=== PATIENT | female | born 1940 | race African-American/Black ===

== ENCOUNTER 2017-03-04 03:49 | Inpatient (IN) | payer OTHER, MEDICAID ==
[~2017-03-04] VITALS: Ht 161.3 cm; Wt 76.2 kg
[~2017-03-04 03:49] MED LIST: ALBU90AE PA; AMLO10TA80 PO; ATROV INH; DIAZ10TA4 PO; GABA-290 PO; LISI40TA4 PO; OMEP20TA2 PO; TRAZ-129 PO
[2017-03-04] MEDS ORDERED: IPRATROPIUM BROMIDE (0.02%) 0.5MG/2.5ML NEB HHN NR (04:54)
[2017-03-04] MEDS ORDERED: ALBUTEROL (0.083%) 2.5MG/3ML NEB HHN NR (04:54)
[2017-03-04] MEDS ORDERED: METHYLPREDNISOLONE SOD SUCC 125 MG/2 ML VIAL IV NR (04:54)
[2017-03-04 05:32] LABS: BASOPHILS % 0.9 % (0.0-2.0); EOSINOPHILS % 0.6 % (0.0-5.0); HEMATOCRIT. 34.6 % (36.0-48.0); HEMOGLOBIN. 11.5 g/dL (12.0-16.0); LYMPHOCYTES % 7.6 % (20.0-50.0); MEAN CORPUSCULAR HEMOGLOBIN 29.7 pg (28.0-32.0); MEAN CORPUSCULAR VOLUME 89.2 fL (81.0-99.0); MEAN PLATELET VOLUME 9.2 fl (7.4-10.4); MONOCYTES % 7.6 % (2.0-8.0); NEUTROPHILS % 83.3 % (40.0-76.0); PLATELET 191 x1000/uL (130-400); RED BLOOD CELL COUNT 3.87 mill/uL (4.2-5.4); RED CELL DISTRIBUTION WIDTH 14.1 % (11.6-14.6)
[2017-03-04] MEDS ORDERED: HYDROCODONE/ACETAMINOPHEN 10/325MG TABLET PO ONE (05:45)
[2017-03-04] MEDS ORDERED: LEVOFLOXACIN 750MG PREMIX 150 ML IV ONE (05:45)
[2017-03-04 05:48] LABS: CARBON DIOXIDE 28 mEq/L (21-32); CHLORIDE 98 mEq/L (98-107); TROPONIN I < 0.02 ng/mL (0.00-0.04)
[2017-03-04 08:00] VITALS: BP 126/44
[2017-03-04 08:30] VITALS: BP 126/44
[2017-03-04 09:15] VITALS: BP 126/44
[2017-03-04] MEDS ORDERED: MAGNESIUM/ALUMINUM HYDROXIDE/SIMETHICONE 30ML UDC PO PRN (09:45)
[2017-03-04] MEDS ORDERED: ONDANSETRON HCL 4MG/2ML VIAL IV PRN (09:45)
[2017-03-04] MEDS ORDERED: ACETAMINOPHEN 325MG TABLET PO PRN (09:45)
[2017-03-04] MEDS ORDERED: IPRATROPIUM/ALBUTEROL 0.5-3(2.5)MG/3ML NEB INH PRN (09:45)
[2017-03-04] MEDS ORDERED: LEVOFLOXACIN 750MG PREMIX 150 ML IV SCH (09:45)
[2017-03-04] MEDS ORDERED: DOCUSATE SODIUM 100MG CAPSULE PO PRN (09:45)
[2017-03-04] MEDS ORDERED: LORAZEPAM 2MG/ML CPJ IV PRN (09:45)
[2017-03-04] MEDS ORDERED: CLONIDINE 0.1MG TABLET PO PRN (09:45)
[2017-03-04] MEDS ORDERED: DIPHENHYDRAMINE 50MG/ML VIAL IV PRN (09:45)
[2017-03-04] MEDS ORDERED: GUAIFENESIN 200MG/10ML SUGAR FREE UDC PO PRN (09:45)
[2017-03-04] MEDS ORDERED: NITROGLYCERIN 0.4MG TABLET SL SL PRN (09:45)
[2017-03-04] MEDS ORDERED: NA PHOS,M-B/NA PHOS,DI-BA ENEMA 118ML PR PRN (09:45)
[2017-03-04] MEDS: ASCORBIC ACID 500 MG TABLET PO SCH ×2 (10:21→21:54)
[2017-03-04] MEDS: ENOXAPARIN 40MG/0.4ML SYR SUBCUT SCH (10:21)
[2017-03-04] MEDS: ZINC SULFATE 220 MG ( 50 ) CAPSULE PO SCH (10:21)
[2017-03-04] MEDS: GUAIFENESIN 600MG ER TABLET PO SCH ×2 (10:21→21:55)
[2017-03-04 11:21] VITALS: BP 120/48
[2017-03-04] MEDS: METHYLPREDNISOLONE SOD SUCC 125 MG/2 ML VIAL IV SCH ×2 (13:28→21:55)
[2017-03-04 15:15] VITALS: BP 107/53
[2017-03-04 17:12] LABS: *AMPHETAMINES SCREEN URINE NEGATIVE (NEGATIVE); *BARBITURATES SCREEN URINE NEGATIVE (NEGATIVE); *BENZODIAZEPINES SCREEN URINE PRESUMTIVE POSITIVE (NEGATIVE); *COCAINE SCREEN URINE NEGATIVE (NEGATIVE); CANNABINOID URINE SCREEN NEGATIVE (NEGATIVE); METHADONE URINE SCREEN NEGATIVE (NEGATIVE); OPIATES URINE SCREEN PRESUMTIVE POSITIVE (NEGATIVE); PHENCYCLIDINE URINE SCREEN NEGATIVE (NEGATIVE)
[2017-03-04 17:20] LABS: CREATINE KINASE 59 IU/L (26-192); CREATINE KINASE MB FRACTION 1.4 ng/mL (0.5-3.6); TROPONIN I < 0.02 ng/mL (0.00-0.04)
[2017-03-04 20:00] VITALS: BP 115/60
[2017-03-04] MEDS: MORPHINE SULFATE 4 MG/ML CPJ (NOT FOR IM USE) IV PRN (23:00)
[2017-03-04] MEDS: IPRATROPIUM/ALBUTEROL 0.5-3(2.5)MG/3ML NEB HHN SCH (23:58)
[2017-03-05] VITALS: BP 111/55
[2017-03-05 00:21] LABS: CREATINE KINASE 63 IU/L (26-192); CREATINE KINASE MB FRACTION 1.4 ng/mL (0.5-3.6); TROPONIN I < 0.02 ng/mL (0.00-0.04)
[2017-03-05] MEDS: ZOLPIDEM TARTRATE 5MG TABLET PO PRN (00:26)
[2017-03-05 04:00] VITALS: BP 110/56
[2017-03-05] MEDS: IPRATROPIUM/ALBUTEROL 0.5-3(2.5)MG/3ML NEB HHN SCH ×5 (04:24→20:24)
[2017-03-05] MEDS: METHYLPREDNISOLONE SOD SUCC 125 MG/2 ML VIAL IV SCH ×2 (06:04→13:56)
[2017-03-05 08:00] VITALS: BP 117/49
[2017-03-05] MEDS: GUAIFENESIN 600MG ER TABLET PO SCH ×2 (09:00→21:41)
[2017-03-05] MEDS: ZINC SULFATE 220 MG ( 50 ) CAPSULE PO SCH (09:41)
[2017-03-05] MEDS: ASCORBIC ACID 500 MG TABLET PO SCH ×2 (09:42→21:41)
[2017-03-05] MEDS: ENOXAPARIN 40MG/0.4ML SYR SUBCUT SCH (09:43)
[2017-03-05] MEDS: MORPHINE SULFATE 4 MG/ML CPJ (NOT FOR IM USE) IV PRN (09:52)
[2017-03-05 12:00] VITALS: BP 119/49
[2017-03-05 16:00] VITALS: BP 118/49
[2017-03-05] MEDS ORDERED: METHYLPREDNISOLONE SOD SUCC 40 MG/ML VIAL IV SCH (17:00)
[2017-03-05] MEDS: TRAMADOL 50MG TABLET PO PRN (17:16)
[2017-03-05 20:00] VITALS: BP 114/50
[2017-03-05] MEDS: BUDESONIDE 0.5MG/2ML NEB HHN SCH (20:24)
[2017-03-05] MEDS: METHYLPREDNISOLONE SOD SUCC 40 MG/ML VIAL IV SCH (21:42)
[2017-03-06] VITALS: BP 125/59
[2017-03-06] MEDS: IPRATROPIUM/ALBUTEROL 0.5-3(2.5)MG/3ML NEB HHN SCH ×4 (02:35→20:28)
[2017-03-06 04:00] VITALS: BP 118/54
[2017-03-06 06:54] LABS: HEMATOCRIT. 30.2 % (36.0-48.0); HEMOGLOBIN. 10.2 g/dL (12.0-16.0); MEAN CORPUSCULAR HEMOGLOBIN 30.1 pg (28.0-32.0); MEAN CORPUSCULAR VOLUME 89.3 fL (81.0-99.0); MEAN PLATELET VOLUME 8.9 fl (7.4-10.4); PLATELET 194 x1000/uL (130-400); RED BLOOD CELL COUNT 3.38 mill/uL (4.2-5.4); RED CELL DISTRIBUTION WIDTH 14.5 % (11.6-14.6)
[2017-03-06 08:04] VITALS: BP 123/56
[2017-03-06 08:13] LABS: CARBON DIOXIDE 26 mEq/L (21-32); CHLORIDE 101 mEq/L (98-107)
[2017-03-06] MEDS: GUAIFENESIN 600MG ER TABLET PO SCH ×2 (09:00→20:52)
[2017-03-06] MEDS: ASCORBIC ACID 500 MG TABLET PO SCH ×2 (09:51→20:53)
[2017-03-06] MEDS: ZINC SULFATE 220 MG ( 50 ) CAPSULE PO SCH (09:52)
[2017-03-06] MEDS: METHYLPREDNISOLONE SOD SUCC 40 MG/ML VIAL IV SCH (09:52)
[2017-03-06] MEDS: ENOXAPARIN 40MG/0.4ML SYR SUBCUT SCH (09:54)
[2017-03-06] MEDS: TRAMADOL 50MG TABLET PO PRN (10:10)
[2017-03-06] MEDS ORDERED: LEVOFLOXACIN 750MG PREMIX 150 ML IV SCH (11:00)
[2017-03-06 12:00] VITALS: BP 113/48
[2017-03-06] MEDS: LACTULOSE 20G/30ML UDC PO SCH ×3 (12:37→20:00)
[2017-03-06 13:18] LABS: PLATELET ESTIMATE NORMAL
[2017-03-06 16:00] VITALS: BP 117/50
[2017-03-06] MEDS: PREDNISONE 20MG TABLET PO SCH (17:00)
[2017-03-06] MEDS: DOCUSATE SODIUM 100MG CAPSULE PO SCH (17:00)
[2017-03-06 20:00] VITALS: BP 110/50
[2017-03-06] MEDS: BUDESONIDE 0.5MG/2ML NEB HHN SCH (20:29)
[2017-03-06] MEDS: ZOLPIDEM TARTRATE 5MG TABLET PO PRN (20:53)
[2017-03-06] MEDS ORDERED: POLYETHYLENE GLYCOL 3350 (17GM) 1 DOSE PACK PO SCH (21:00)
[2017-03-07] MEDS: IPRATROPIUM/ALBUTEROL 0.5-3(2.5)MG/3ML NEB HHN SCH ×2 (03:39→10:21)
[2017-03-07 04:00] VITALS: BP 118/50
[2017-03-07 08:22] VITALS: BP 112/48
[2017-03-07] MEDS: ASCORBIC ACID 500 MG TABLET PO SCH (08:49)
[2017-03-07] MEDS: PREDNISONE 20MG TABLET PO SCH (08:49)
[2017-03-07] MEDS: ZINC SULFATE 220 MG ( 50 ) CAPSULE PO SCH (08:49)
[2017-03-07] MEDS: ENOXAPARIN 40MG/0.4ML SYR SUBCUT SCH (08:50)
[2017-03-07 08:58] VITALS: BP 112/48
[2017-03-07] MEDS: MORPHINE SULFATE 4 MG/ML CPJ (NOT FOR IM USE) IV PRN (08:58)
[2017-03-07] MEDS: DOCUSATE SODIUM 100MG CAPSULE PO SCH (09:00)
[2017-03-07] MEDS: GUAIFENESIN 600MG ER TABLET PO SCH (09:00)
== END 2017-03-07 11:25 | disposition home or self-care (01) | DRG 189 ==
LOC: ER 03:51 → 6WST 05:42 → EDBEDREQ 05:45 → ENRESERV 07:05
PROVIDERS: ADMIT Internal Medicine; ATTEND Internal Medicine
DX: J96.00 Acute respiratory failure, unspecified whether with hypoxia or hypercapnia (principal); J18.9 Pneumonia, unspecified organism; E44.0 Moderate protein-calorie malnutrition; C34.90 Malignant neoplasm of unspecified part of unspecified bronchus or lung; D64.9 Anemia, unspecified; J44.0 Chronic obstructive pulmonary disease with (acute) lower respiratory infection; Z99.81 Dependence on supplemental oxygen; I10 Essential (primary) hypertension; E87.1 Hypo-osmolality and hyponatremia; J44.1 Chronic obstructive pulmonary disease with (acute) exacerbation; G40.909 Epilepsy, unspecified, not intractable, without status epilepticus; R26.9 Unspecified abnormalities of gait and mobility; D72.829 Elevated white blood cell count, unspecified; Z82.49 Family history of ischemic heart disease and other diseases of the circulatory system; Z86.73 Personal history of transient ischemic attack (TIA), and cerebral infarction without residual deficits; Z87.891 Personal history of nicotine dependence; Z88.8 Allergy status to other drugs, medicaments and biological substances; Z79.899 Other long term (current) drug therapy; Z92.21 Personal history of antineoplastic chemotherapy; Z92.3 Personal history of irradiation; Z68.29 Body mass index [BMI] 29.0-29.9, adult
CPT/HCPCS: 36415; 71010; 80048; 80053; 80061; 80305; 82550; 82553; 83036; 83605; 83880; 84484; 85025; 87040; 93005; 93970; 94640; 94664; 96365; 96375; 97161; 99285; C1893; J1650; J1956; J2060; J2270; J2920; J2930; J7050; J7512; J7611; J7620; J7626

== ENCOUNTER 2017-03-28 18:37 | Emergency (ER) | payer OTHER, MEDICAID ==
[~2017-03-28] VITALS: Ht 162.6 cm; Wt 66.0 kg
[~2017-03-28 18:37] MED LIST changes: -ALBU90AE PA; -ATROV INH; -LISI40TA4 PO
[2017-03-28 18:52] VITALS: BP 128/84
== END 2017-03-28 23:35 | disposition left against medical advice (07) ==
LOC: ER 18:54
DX: R10.84 Generalized abdominal pain (principal); Z53.21 Procedure and treatment not carried out due to patient leaving prior to being seen by health care provider

== ENCOUNTER 2017-08-21 23:11 | Inpatient (IN) | payer MEDICARE, MEDICAID ==
[~2017-08-21] VITALS: Ht 167.6 cm; Wt 54.4 kg
[2017-08-22] MEDS ORDERED: SODIUM CHLORIDE 0.9% 1,000 ML IV ONE (00:04)
[2017-08-22] MEDS ORDERED: INSULIN REGULAR (HUMULIN R) 300UNITS/3ML IV ONE ×2 (00:15→03:15)
[2017-08-22 00:47] LABS: HEMOGLOBIN. 13.8 g/dL (12.0-16.0); MEAN CORPUSCULAR HEMOGLOBIN 29.9 pg (28.0-32.0); MEAN CORPUSCULAR VOLUME 91.1 fL (81.0-99.0); MEAN PLATELET VOLUME 8.5 fl (7.4-10.4); PLATELET 229 x1000/uL (130-400); RED BLOOD CELL COUNT 4.61 mill/uL (4.2-5.4); RED CELL DISTRIBUTION WIDTH 14.9 % (11.6-14.6)
[2017-08-22 00:57] LABS: CHLORIDE 96 mEq/L (98-107)
[2017-08-22 01:01] LABS: BG BASE EXCESS 2.4 mmol/L (-2.0-2.0); BG CARBOXYHEMOGLOBIN 1.2 % (0.5-1.5); BG DEOXYHEMOGLOBIN 1.3 % (0.0-5.0); BG FRACTION INSPIRED OXYGEN 28; BG HCO3 ACT 27.5 mmol/L (22.0-26.0); BG METHEMOGLOBIN 0.1 % (0.0-1.5); BG OXYGEN SATURATION 98.7 % (92.0-98.5); BG OXYHEMOGLOBIN 97.4 % (94.0-97.0); BG PCO2 44.2 mmHg (35.0-45.0); BG PH 7.411 (7.350-7.450); BG PO2 139.9 mmHg (75.0-100.0); BG SAMPLE SITE RIGHT RADIAL; BG TOTAL HEMOGLOBIN 13.5 g/dL (12.0-18.0); BG VENT MODE NASAL CANNULA
[2017-08-22 01:04] LABS: ETHANOL BLOOD < 10 mg/dL
[2017-08-22 01:05] LABS: BETA HYDROXYBUTYRATE 3.4 mMol/L (0.0-0.3)
[2017-08-22 01:08] LABS: INR 1.1; PROTHROMBIN TIME 10.9 sec (9.4-11.6)
[2017-08-22 01:25] LABS: ATYPICAL LYMPHOCYTES 1; PLATELET ESTIMATE NORMAL
[2017-08-22 02:46] LABS: CLARITY URINE CLEAR (CLEAR); COLOR URINE YELLOW (YELLOW); KETONES URINE 2+ (NEGATIVE); LEUKOCYTE ESTERASE URINE NEGATIVE (NEGATIVE); NITRITE URINE POSITIVE (NEGATIVE); OCCULT BLOOD URINE TRACE (NEGATIVE); PROTEIN URINE NEGATIVE (NEGATIVE); SPECIFIC GRAVITY URINE 1.035 (1.005-1.030); UROBILINOGEN URINE 0.2 E.U./dL (0.2-1.0)
[2017-08-22 02:59] LABS: *AMPHETAMINES SCREEN URINE NEGATIVE (NEGATIVE); *BARBITURATES SCREEN URINE NEGATIVE (NEGATIVE); *BENZODIAZEPINES SCREEN URINE NEGATIVE (NEGATIVE); CANNABINOID URINE SCREEN NEGATIVE (NEGATIVE); METHADONE URINE SCREEN NEGATIVE (NEGATIVE); OPIATES URINE SCREEN PRESUMTIVE POSITIVE (NEGATIVE); PHENCYCLIDINE URINE SCREEN NEGATIVE (NEGATIVE)
[2017-08-22 03:14] LABS: *COCAINE SCREEN URINE NEGATIVE (NEGATIVE)
[2017-08-22] MEDS ORDERED: LORAZEPAM 2MG/ML CPJ IV PRN (06:52)
[2017-08-22] MEDS ORDERED: DEXTROSE 50% WATER 50ML SYRINGE IV PRN (09:15)
[2017-08-22] MEDS ORDERED: AZITHROMYCIN 500 MG TABLET PO NR (10:30)
[2017-08-22] MEDS ORDERED: CEFTRIAXONE 1 G PREMIX 50 ML IV NR (10:30)
[2017-08-22] MEDS: CLONIDINE 0.1MG TABLET PO PRN ×2 (11:49→17:49)
[2017-08-22 14:22] VITALS: BP 154/77
[2017-08-22 14:25] VITALS: BP 154/77
[2017-08-22] MEDS ORDERED: HYDRALAZINE 20MG/ML VIAL IV PRN (14:28)
[2017-08-22] MEDS: AMLODIPINE 10MG TABLET PO SCH (14:46)
[2017-08-22 16:00] VITALS: BP 161/79
[2017-08-22] MEDS: BLOOD SUGAR DIAGNOSTIC STRIP TEST SCH ×2 (17:45→20:50)
[2017-08-22] MEDS: INSULIN LISPRO 100 UNITS/ML SUBCUT SCH ×2 (17:49→20:54)
[2017-08-22 21:00] VITALS: BP 97/52
[2017-08-22] MEDS: RISPERIDONE 0.25MG TABLET PO SCH (21:05)
[2017-08-22] MEDS: INSULIN GLARGINE UD 100 UNITS/ML SYR SUBCUT SCH (22:00)
[2017-08-23] VITALS: BP 155/75
[2017-08-23 04:00] VITALS: BP 178/84
[2017-08-23] MEDS: BLOOD SUGAR DIAGNOSTIC STRIP TEST SCH ×4 (06:44→21:44)
[2017-08-23 07:13] LABS: BASOPHILS % 0.1 % (0.0-2.0); EOSINOPHILS % 0.6 % (0.0-5.0); HEMATOCRIT. 38.2 % (36.0-48.0); HEMOGLOBIN. 12.7 g/dL (12.0-16.0); LYMPHOCYTES % 10.3 % (20.0-50.0); MEAN CORPUSCULAR HEMOGLOBIN 29.8 pg (28.0-32.0); MEAN CORPUSCULAR VOLUME 89.5 fL (81.0-99.0); MEAN PLATELET VOLUME 8.9 fl (7.4-10.4); MONOCYTES % 14.6 % (2.0-8.0); NEUTROPHILS % 74.4 % (40.0-76.0); PLATELET 243 x1000/uL (130-400); RED BLOOD CELL COUNT 4.27 mill/uL (4.2-5.4); RED CELL DISTRIBUTION WIDTH 14.8 % (11.6-14.6)
[2017-08-23 08:00] VITALS: BP 172/94
[2017-08-23] MEDS: INSULIN LISPRO 100 UNITS/ML SUBCUT SCH ×4 (08:11→21:51)
[2017-08-23] MEDS: AMLODIPINE 10MG TABLET PO SCH (08:15)
[2017-08-23] MEDS: AZITHROMYCIN 500 MG TABLET PO SCH (08:15)
[2017-08-23] MEDS: RISPERIDONE 0.25MG TABLET PO SCH ×2 (08:15→16:58)
[2017-08-23 08:48] LABS: CHLORIDE 97 mEq/L (98-107)
[2017-08-23] MEDS ORDERED: CEFTRIAXONE 1 G PREMIX 50 ML IV SCH (09:00)
[2017-08-23] MEDS ORDERED: FAMO-134 PO (11:00)
[2017-08-23] MEDS ORDERED: KEPP500 PO (11:00)
[2017-08-23] MEDS ORDERED: RIVA20TA PO (11:00)
[2017-08-23] MEDS ORDERED: METO25TA6 PO (11:00)
[2017-08-23] MEDS ORDERED: DEX2 PO (11:00)
[2017-08-23] MEDS: INSULIN GLARGINE UD 100 UNITS/ML SYR SUBCUT SCH ×2 (11:54→22:00)
[2017-08-23 12:00] VITALS: BP 126/46
[2017-08-23] MEDS ORDERED: BLOOD SUGAR DIAGNOSTIC STRIP TEST SCH (12:40)
[2017-08-23] MEDS: DEXAMETHASONE 4MG TABLET PO SCH ×2 (12:53→16:58)
[2017-08-23 16:00] VITALS: BP 139/68
[2017-08-23] MEDS: LEVETIRACETAM 500MG TABLET PO SCH (16:58)
[2017-08-23] MEDS: LEVOFLOXACIN 750MG PREMIX 150 ML IV SCH (16:58)
[2017-08-23 20:32] VITALS: BP 140/53
[2017-08-23] MEDS: LORAZEPAM 1MG TABLET PO PRN (21:55)
[2017-08-24 00:04] VITALS: BP 150/75
[2017-08-24 04:00] VITALS: BP 157/81
[2017-08-24] MEDS: BLOOD SUGAR DIAGNOSTIC STRIP TEST SCH ×4 (06:11→21:06)
[2017-08-24] MEDS: LORAZEPAM 1MG TABLET PO PRN (06:14)
[2017-08-24 08:00] VITALS: BP 168/67
[2017-08-24] MEDS: LEVETIRACETAM 500MG TABLET PO SCH ×2 (09:34→18:21)
[2017-08-24] MEDS: AZITHROMYCIN 500 MG TABLET PO SCH (09:34)
[2017-08-24] MEDS: RISPERIDONE 0.25MG TABLET PO SCH ×2 (09:34→18:21)
[2017-08-24] MEDS: DEXAMETHASONE 4MG TABLET PO SCH ×3 (09:34→18:21)
[2017-08-24] MEDS: AMLODIPINE 10MG TABLET PO SCH (09:35)
[2017-08-24] MEDS: INSULIN LISPRO 100 UNITS/ML SUBCUT SCH ×4 (09:37→21:06)
[2017-08-24] MEDS: INSULIN GLARGINE UD 100 UNITS/ML SYR SUBCUT SCH ×2 (09:44→21:07)
[2017-08-24 12:00] VITALS: BP 127/58
[2017-08-24] MEDS: HYDROCODONE/ACETAMINOPHEN 5/325MG TABLET PO PRN ×3 (12:31→22:19)
[2017-08-24 16:00] VITALS: BP 113/56
[2017-08-24 20:00] VITALS: BP 108/59
[2017-08-25] VITALS: BP 112/62
[2017-08-25 04:00] VITALS: BP 121/62
[2017-08-25] MEDS: BLOOD SUGAR DIAGNOSTIC STRIP TEST SCH ×4 (06:16→22:38)
[2017-08-25] MEDS: INSULIN LISPRO 100 UNITS/ML SUBCUT SCH ×4 (06:16→22:37)
[2017-08-25] MEDS: HYDROCODONE/ACETAMINOPHEN 5/325MG TABLET PO PRN ×3 (06:17→22:38)
[2017-08-25 08:00] VITALS: BP 118/61
[2017-08-25] MEDS: LEVETIRACETAM 500MG TABLET PO SCH ×2 (09:44→16:57)
[2017-08-25] MEDS: DEXAMETHASONE 4MG TABLET PO SCH ×3 (09:44→16:57)
[2017-08-25] MEDS: AMLODIPINE 10MG TABLET PO SCH (09:45)
[2017-08-25] MEDS: RISPERIDONE 0.25MG TABLET PO SCH (09:45)
[2017-08-25 12:00] VITALS: BP 120/74
[2017-08-25 16:00] VITALS: BP 118/69
[2017-08-25] MEDS: RISPERIDONE 0.5MG TABLET PO SCH (16:57)
[2017-08-25] MEDS: LEVOFLOXACIN 750MG PREMIX 150 ML IV SCH (16:59)
[2017-08-25] MEDS: INSULIN GLARGINE UD 100 UNITS/ML SYR SUBCUT SCH ×2 (17:02→22:38)
[2017-08-25 20:00] VITALS: BP 98/53
[2017-08-26] VITALS: BP 100/59
[2017-08-26 04:00] VITALS: BP 103/60
[2017-08-26 08:00] VITALS: BP 114/72
[2017-08-26] MEDS: BLOOD SUGAR DIAGNOSTIC STRIP TEST SCH ×3 (08:34→17:43)
[2017-08-26] MEDS ORDERED: INSULIN GLARGINE UD 100 UNITS/ML SYR SUBCUT SCH (10:30)
[2017-08-26] MEDS: INSULIN LISPRO 100 UNITS/ML SUBCUT SCH ×3 (10:35→17:50)
[2017-08-26] MEDS: AMLODIPINE 10MG TABLET PO SCH (10:36)
[2017-08-26] MEDS: LEVETIRACETAM 500MG TABLET PO SCH ×2 (10:36→17:47)
[2017-08-26] MEDS: RISPERIDONE 0.5MG TABLET PO SCH ×2 (10:36→17:47)
[2017-08-26] MEDS: DEXAMETHASONE 4MG TABLET PO SCH ×3 (10:37→17:47)
[2017-08-26 12:00] VITALS: BP 104/57
[2017-08-26] MEDS: HYDROCODONE/ACETAMINOPHEN 5/325MG TABLET PO PRN (14:37)
[2017-08-26 15:41] VITALS: BP 140/66
[2017-08-26 16:00] VITALS: BP 140/66
== END 2017-08-26 19:30 | disposition home or self-care (01) | DRG 177 ==
LOC: ER 23:19 → EDBEDREQTM 08-22 02:00 → EDBEDREQ 08-22 02:00 → 7WST 08-22 06:20 → ENRESERV 08-22 13:01 → CANRESERV 08-22 13:02
PROVIDERS: ADMIT Internal Medicine; ATTEND Internal Medicine
DX: J69.0 Pneumonitis due to inhalation of food and vomit (principal); G93.41 Metabolic encephalopathy; E44.0 Moderate protein-calorie malnutrition; R78.81 Bacteremia; B96.1 Klebsiella pneumoniae [K. pneumoniae] as the cause of diseases classified elsewhere; E10.65 Type 1 diabetes mellitus with hyperglycemia; C34.90 Malignant neoplasm of unspecified part of unspecified bronchus or lung; N39.0 Urinary tract infection, site not specified; Z68.1 Body mass index [BMI] 19.9 or less, adult; Z51.5 Encounter for palliative care; I10 Essential (primary) hypertension; Z85.841 Personal history of malignant neoplasm of brain; Z98.1 Arthrodesis status; Z88.6 Allergy status to analgesic agent; Z88.8 Allergy status to other drugs, medicaments and biological substances; Z79.899 Other long term (current) drug therapy
CPT/HCPCS: 36415; 36600; 51702; 70450; 71045; 80048; 80053; 80305; 81003; 82010; 82375; 82805; 82962; 83605; 83690; 83880; 84484; 85025; 85610; 87040; 87077; 87086; 87186; 87804; 93005; 96361; 96365; 96366; 96375; 96376; 97116; 97162; 97530; 99291; C1893; G0482; J0360; J0696; J1815; J1956; J2060; J7030; J7050; J8540; A4315

== ENCOUNTER 2017-09-05 16:31 | Emergency (ER) | payer MEDICARE, MEDICAID ==
[~2017-09-05] VITALS: Ht 160 cm; Wt 62.0 kg
[~2017-09-05 16:31] MED LIST changes: +DEX2 PO; +FAMO-134 PO; +KEPP500 PO; +METO25TA6 PO; +RIVA20TA PO
[2017-09-05 18:11] LABS: HEMATOCRIT. 35.3 % (36.0-48.0); HEMOGLOBIN. 12.2 g/dL (12.0-16.0); MEAN CORPUSCULAR HEMOGLOBIN 29.8 pg (28.0-32.0); MEAN CORPUSCULAR VOLUME 86.6 fL (81.0-99.0); MEAN PLATELET VOLUME 8.3 fl (7.4-10.4); PLATELET 255 x1000/uL (130-400); RED BLOOD CELL COUNT 4.08 mill/uL (4.2-5.4); RED CELL DISTRIBUTION WIDTH 14.6 % (11.6-14.6)
[2017-09-05 18:18] LABS: INR 2.3; PROTHROMBIN TIME 23.9 sec (9.4-11.6)
[2017-09-05 18:21] LABS: CHLORIDE 97 mEq/L (98-107)
[2017-09-05 18:52] LABS: CLARITY URINE CLOUDY (CLEAR); COLOR URINE YELLOW (YELLOW); KETONES URINE NEGATIVE (NEGATIVE); LEUKOCYTE ESTERASE URINE 2+ (NEGATIVE); NITRITE URINE NEGATIVE (NEGATIVE); OCCULT BLOOD URINE 1+ (NEGATIVE); PROTEIN URINE NEGATIVE (NEGATIVE); SPECIFIC GRAVITY URINE 1.023 (1.005-1.030); UROBILINOGEN URINE 0.2 E.U./dL (0.2-1.0)
[2017-09-05 18:53] LABS: PLATELET ESTIMATE NORMAL
[2017-09-05 21:48] VITALS: BP 102/50
== END 2017-09-05 21:48 | disposition home or self-care (01) ==
LOC: ER 16:55
DX: I95.9 Hypotension, unspecified (principal); C34.91 Malignant neoplasm of unspecified part of right bronchus or lung; C79.31 Secondary malignant neoplasm of brain; D72.829 Elevated white blood cell count, unspecified; E11.9 Type 2 diabetes mellitus without complications; J44.9 Chronic obstructive pulmonary disease, unspecified; E86.0 Dehydration; E83.51 Hypocalcemia
CPT/HCPCS: 36415; 71045; 80053; 81003; 85025; 85610; 99285

== ENCOUNTER 2019-05-05 16:11 | Emergency (ER) | payer OTHER, MEDICAID ==
[~2019-05-05] VITALS: Ht 162.6 cm; Wt 68.0 kg
[~2019-05-05 16:11] MED LIST changes: -TRAZ-129 PO; +TRAZ-251 PO
[2019-05-05] MEDS ORDERED: METHYLPREDNISOLONE SOD SUCC 125 MG/2 ML VIAL IV ONE (16:45)
[2019-05-05] MEDS ORDERED: ALBUTEROL (0.083%) 2.5MG/3ML NEB HHN ONE (16:45)
[2019-05-05] MEDS ORDERED: IPRATROPIUM BROMIDE (0.02%) 0.5MG/2.5ML NEB HHN ONE (16:45)
[2019-05-05 17:25] LABS: HEMATOCRIT. 29.3 % (36.0-48.0); MEAN CORPUSCULAR HEMOGLOBIN 24.9 pg (28.0-32.0); MEAN CORPUSCULAR VOLUME 81.3 fL (81.0-99.0); MEAN PLATELET VOLUME 8.1 fl (7.4-10.4); PLATELET 168 x1000/uL (130-400); RED CELL DISTRIBUTION WIDTH 20.8 % (11.6-14.6)
[2019-05-05 17:31] LABS: CHLORIDE 92 mEq/L (98-107)
[2019-05-05 23:57] LABS: PLATELET ESTIMATE NORMAL
[2019-05-06 01:48] VITALS: BP 138/59
== END 2019-05-06 02:27 | disposition short-term general hospital (02) ==
LOC: ER 16:11
DX: I48.91 Unspecified atrial fibrillation (principal); J44.9 Chronic obstructive pulmonary disease, unspecified; R06.82 Tachypnea, not elsewhere classified; R00.0 Tachycardia, unspecified; R07.9 Chest pain, unspecified; R55 Syncope and collapse; E11.9 Type 2 diabetes mellitus without complications; I10 Essential (primary) hypertension; Z98.890 Other specified postprocedural states; Z79.899 Other long term (current) drug therapy; Z88.6 Allergy status to analgesic agent
CPT/HCPCS: 36415; 71045; 80053; 83880; 84484; 85025; 93005; 94640; 94660; 96374; 99291; J2930; J7611